=== PATIENT | female | born 1970 ===

== ENCOUNTER 2018-10-04 07:42 | Emergency (ER) | payer BC ==
[2018-10-04 07:55] VITALS: BMI 33.6
[2018-10-04 08:43] LABS: SQUAMOUS EPITHIAL 4 /hpf (0-5); URINE BILIRUBIN NEGATIVE (NEGATIVE); URINE BLOOD NEGATIVE (NEGATIVE); URINE CLARITY Clear (Clear); URINE COLOR Yellow (YELLOW); URINE GLUCOSE (UA) NORMAL (Normal); URINE LEUKOCYTE ESTERASE TRACE Leu/uL (Negative); URINE PROTEIN NEGATIVE (NEGATIVE); URINE UROBILINOGEN NORMAL mg/dL (0.2-1.0)
--- NOTE | 2018-10-04 10:14 | C.PDOC ---
History Of Present Illness 48 year old female presents to the ED for evaluation of left lower back pain which began upon waking up two days ago. Patient took some Motrin yesterday with some relief, but did not take anything for pain today. Patient reports her pain somtimes radiates down her left leg. She denies fever, chills, paresthesia, bowel or bladder dysfunction, extremity weakness, or any recent falls/injuries at this time. Time Seen by Provider: 10/04/18 08:01 Chief Complaint (Nursing): Back Pain History Per: Patient History/Exam Limitations: no limitations Onset/Duration Of Symptoms: Days (2) Current Symptoms Are (Timing): Still Present Quality Of Discomfort: "Pain" Previous Symptoms: Back Pain Associated Symptoms: denies: New Weakness, New Numbness Additional History Per: Patient Past Medical History Reviewed: Historical Data, Nursing Documentation, Vital Signs Vital Signs: Last Vital Signs Temp 98.2 F 10/04/18 07:48 Pulse 70 10/04/18 07:48 Resp 17 10/04/18 07:48 BP 143/83 10/04/18 07:48 Pulse Ox 97 10/04/18 07:48 - Medical History PMH: Hypothyroidism Surgical History: No Surg Hx Family History: States: Unknown Family Hx - Social History Hx Alcohol Use: Yes (Rarely) Hx Substance Use: No - Immunization History Hx Tetanus Toxoid Vaccination: No Hx Influenza Vaccination: Yes (2018) Hx Pneumococcal Vaccination: No Review Of Systems Constitutional: Negative for: Fever, Chills Genitourinary: Positive for: Incontinence (urinary, only with coughing) Musculoskeletal: Positive for: Back Pain (left-sided, lower ) Neurological: Negative for: Weakness, Numbness Physical Exam - Physical Exam Appears: Non-toxic, No Acute Distress Skin: Normal Color, Warm, Dry Head: Atraumatic, Normacephalic Eye(s): bilateral: Normal Inspection Oral Mucosa: Moist Neck: Supple Chest: Symmetrical, No Deformity, No Tenderness Cardiovascular: Rhythm Regular, No Murmur Respiratory: Normal Breath Sounds, No Rales, No Rhonchi, No Wheezing Back: No CVA Tenderness, Paraspinal Tenderness (mild, left-sided, lumbar ) Extremity: Normal ROM, No Tenderness, Capillary Refill (less than 2 seconds ), No Swelling Neurological/Psych: Normal Speech, Normal Cognition, Normal Motor, Normal Sensation, Normal Reflexes Gait: Steady ED Course And Treatment - Laboratory Results Lab Results: Urine Color Yellow (YELLOW) 10/04/18 08:26 Urine Clarity Clear (Clear) 10/04/18 08:26 Urine pH 5.0 (5.0-8.0) 10/04/18 08:26 Ur Specific [place] 1.021 (1.003-1.030) 10/04/18 08:26 Urine Protein Negative mg/dL (NEGATIVE) 10/04/18 08:26 Urine Glucose (UA) Normal mg/dL (Normal) 10/04/18 08:26 Urine Ketones Negative mg/dL (NEGATIVE) 10/04/18 08:26 Urine Blood Negative (NEGATIVE) 10/04/18 08:26 Urine Nitrate Negative (NEGATIVE) 10/04/18 08:26 Urine Bilirubin Negative (NEGATIVE) 10/04/18 08:26 Urine Urobilinogen Normal mg/dL (0.2-1.0) 10/04/18 08:26 Ur Leukocyte Esterase Trace Areli/uL (Negative) 10/04/18 08:26 Urine WBC (Auto) 6 /hpf (0-5) H 10/04/18 08:26 Urine RBC (Auto) < 1 /hpf (0-3) 10/04/18 08:26 Ur Squamous Epith Cells 4 /hpf (0-5) 10/04/18 08:26 O2 Sat by Pulse Oximetry: 97 (on RA) Pulse Ox Interpretation: Normal Medical Decision Making Medical Decision Making: Impression: 48 year old female with left-sided lower back pain Plan: * urinalysis * Toradol IM * reassess and disposition Progress: Urinalysis ordered and reviewed. Toradol IM given. 10:10 Patient reassessed, states back pain is resolved. Results of UA d/w patient. Plan d/c home to f/u w/pcp. Rx for Naprosyn and Bactrim. Patient agreeable w/POC. Disposition Counseled Patient/Family Regarding: Studies Performed, Diagnosis, Need For Followup - Disposition Disposition: HOME/ ROUTINE Disposition Time: 10:14 Condition: IMPROVED Additional Instructions: KAMAR KO, thank you for letting us take care of you today. Your provider was Latia Hsieh MD and you were treated for BACK PAIN. The emergency medical care you received today was directed at your acute symptoms. If you were prescribed any medication, please fill it and take as directed. It may take several days for your symptoms to resolve. Return to the Emergency Department if your symptoms worsen, do not improve, or if you have any other problems. Please contact your doctor for a follow up appointment in 1-2 days. Bring any paperwork you were given at discharge with you along with any medications you are taking to your follow up visit. Our treatment cannot replace ongoing medical care by a primary care provider outside of the emergency department. Thank you for allowing the [facility] team to be part of your care today. Prescriptions: Naproxen [Naprosyn] 500 mg PO BID PRN #30 tablet PRN Reason: Pain, Moderate (4-7) Sulfamethoxazole/Trimethoprim [Bactrim DS 800 mg-160 mg] 1 tab PO BID #10 tab Instructions: Low Back Pain (DC), Urinary Tract Infection, Adult (DC) Forms: General Discharge Instructions, [employer] ([place]), Work Excuse - POA Present On Arrival: None - Clinical Impression Clinical Impression: Low back pain, UTI (urinary tract infection) - Scribe Statement The provider has reviewed the documentation as recorded by the Scribe (Maria Teresa Anna) Provider Attestation: All medical record entries made by the Scribe were at my direction and personally dictated by me. I have reviewed the chart and agree that the record accurately reflects my personal performance of the history, physical exam, medical decision making, and the department course for this patient. I have also personally directed, reviewed, and agree with the discharge instructions and disposition.
[2018-10-04 10:24] VITALS: BP 113/70; PULSE 72; RESP 16; TEMP 97.6
[2018-10-04 11:00] VITALS: O2SAT 97
== END 2018-10-04 10:26 | disposition home or self-care (01) ==
LOC: C.ER 07:42
DX: N39.0 Urinary tract infection, site not specified (principal); E03.9 Hypothyroidism, unspecified; M54.5 Low back pain
CPT/HCPCS: 81001; 81025; 96372; 99284; J1885